=== PATIENT | female | born 1990 | race Caucasian/White ===

== ENCOUNTER → 2019-10-05 | Day surgery (SDC) | payer OTHER ==
[~2019-10-05] MED LIST: HYDROmorphone 2 MG/ML VIAL IV PRN; IV RINGERS,LACTATED 1000ML 1,000 ML IV SCH; LIDOCAINE 1% PF 2 ML VIAL. ID PRN; MORPHINE SULFATE 2 MG/ML VIAL. IV PRN; ONDANSETRON PF 4 MG/2 ML VIAL. IV PRN; PARO7.5C2 PO; PROCHLORPERAZINE 10 MG/2 ML VIAL. IV PRN; PROPOFOL 20 ML IV ONE; PROPOFOL 40 ML IV ONE; fentaNYL PF VIAL 100 MCG/2 ML VIAL IV PRN
--- NOTE | 2019-10-05 09:04 | PREOP HP ---
DATE OF SERVICE: 10/05/2019 REQUESTING PHYSICIAN: Ramona Simmons MD REASON FOR PROCEDURE: Family history of Brooks syndrome and personal history of Brooks syndrome, colorectal cancer screening. HISTORY OF PRESENT ILLNESS: This is a 28-year-old female who presents today for colorectal cancer screening. FAMILY HISTORY: Positive for colon cancer in multiple family members. 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 ALLERGIES: No known drug allergies. PAST MEDICAL HISTORY: 1. Anxiety. 2. Cervical ectropion. 3. 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 FAMILY MEDICAL HISTORY: Significant for colon cancer and ovarian cancer. SOCIAL HISTORY: She admits to alcohol. Denies tobacco or IV drug abuse. MEDICATIONS: 1. Fluoxetine. 2. Vitamin D. REVIEW OF SYSTEMS: A 13-point review of systems was done. It is positive as per HPI, otherwise negative. PHYSICAL EXAMINATION: VITAL SIGNS: She is afebrile and her vital signs are stable. GENERAL: She is a well-developed, well-nourished female, in no apparent distress. HEENT: Oropharynx is clear. CARDIOVASCULAR: S1, S2. LUNGS: Clear. ABDOMEN: Normoactive bowel sounds, soft, nontender, nondistended. EXTREMITIES: No edema. NEUROLOGIC: Awake, alert and oriented x 3. ASSESSMENT AND PLAN: 1. Brooks syndrome. 2. Colon cancer screening. The risks and benefits of the upper and lower endoscopy explained and she has agreed to proceed. MAHAD WEBB MD DR: EV/sarah JOB#: [id number] / [id number]
[2019-10-05 09:51] VITALS: BP 94/61
--- NOTE | 2019-10-06 17:06 | PATHOLOGY ---
[facility] Accession Number: [id number] . 01 Material submitted: . PART A: small bowel - SMALL BOWEL BX PART B: stomach - GASTRIC ANTRUM BX PART C: esophagus - DISTAL ESOPHAGUS BX. Modifiers: distal . 01 Clinical history: . CRC screen . 02 Diagnosis: A. Small bowel biopsies: - No significant pathologic abnormalities. . B. Gastric biopsies, antrum: - Chronic gastritis, mild. . C. Esophageal biopsies, distal esophagus: - Reflux esophagitis. . (JPM:melissa; 10/06/2019) S 10/06/2019 0859 Local . 02 Comment: Sections of the small bowel biopsy reveal segments of small intestine and duodenal mucosa. Where best oriented, the mucosal villi show no sprue-like changes or significant inflammatory changes. . Sections of the gastric biopsy reveal segments of gastric antral and gastric body mucosa showing congestion and mild chronic inflammation. A properly controlled immunoperoxidase stain for Helicobacter is negative for Helicobacter organisms. . Sections of the distal esophageal biopsy reveal a segment of hyperplastic squamous esophageal mucosa with focal contiguous gastric mucosa showing moderate active chronic inflammation. The findings are consistent with reflux esophagitis. There is no evidence of Valdivia's change, dysplasia, or malignancy. (JPM:melissa; 10/06/2019) . . Special stain performed: Immunoperoxidase stain for Helicobacter on B1 . 02 Electronically signed: . Gavino Webb MD, Pathologist NPI- [id number] . 01 Gross description: . A. The specimen is received in formalin, labeled "Delicia Owen, small bowel" and consists of a few fragments of lópez tissue measuring 1.0 x 0.6 x 0.2 cm in aggregate which are entirely submitted in A1. . B. The specimen is received in formalin, labeled "Birdsey, Delicia, gastric antrum and body" and consists of 3 fragments of pink-lópez tissue measuring between 0.3 x 0.3 cm and 0.6 x 0.4 cm which are entirely submitted in B1. . C. The specimen is received in formalin, labeled "Birdsey, Delicia, distal esophagus BX" and consists of a fragment of pink-lópez tissue measuring 0.3 x 0.2 cm which is entirely submitted in C1. (SDY; 10/05/2019) SYU/SYU 10/05/2019 1638 Local . 02 Pathologist provided ICD-10: K29.50, K21.0 . 02 CPT . 884923, 754950, 574140, [id number] Specimen Comment: A courtesy copy of this report has been sent to [phone], [phone] Specimen Comment: [id number] Specimen Comment: Report sent to / DR MENARD Performed at: 01 [facility] [address], [place], [place] [id number] MD Wesley Silva MD Phone: [phone] Performed at: 02 [facility] [address], [place] [id number] MD Gavino Webb MD Phone: [phone]
== END ==
LOC: ENDOS 08:23
PROVIDERS: ATTEND Internal Medicine Gastroenterology
DX: Z12.11 Encounter for screening for malignant neoplasm of colon (principal); K64.0 First degree hemorrhoids; K29.50 Unspecified chronic gastritis without bleeding; K21.0 Gastro-esophageal reflux disease with esophagitis; K31.89 Other diseases of stomach and duodenum; K44.9 Diaphragmatic hernia without obstruction or gangrene; F41.9 Anxiety disorder, unspecified; Z13.810 Encounter for screening for upper gastrointestinal disorder; Z80.41 Family history of malignant neoplasm of ovary; Z80.0 Family history of malignant neoplasm of digestive organs; Z15.09 Genetic susceptibility to other malignant neoplasm; Z79.899 Other long term (current) drug therapy; Z72.89 Other problems related to lifestyle; Z83.3 Family history of diabetes mellitus; E66.3 Overweight; Z68.27 Body mass index [BMI] 27.0-27.9, adult; Z85.038 Personal history of other malignant neoplasm of large intestine
CPT/HCPCS: 43239; 45378; 81025; 88305; 88342; J2704